=== PATIENT | female | born 1955 | race Caucasian/White ===

== ENCOUNTER 2016-06-13 18:08 | Emergency (ER) | payer MEDICARE ==
--- NOTE | 2016-06-13 19:25 | UC ---
Skin Complaint HPI - HPI Summary HPI Summary: 60 yo female with slightly itchy spreading rash on rash x 5 days crusted lesion below right nostril - History of Current Complaint Chief Complaint: UCRash Time Seen by Provider: 06/13/16 19:19 Stated Complaint: MOUTH AND CHIN SORE Hx Obtained From: Patient Onset/Duration: Gradual Onset, Lasting Days Timing: Constant Onset Severity: Mild Current Severity: Mild Pain Intensity: 0 Pain Scale Used: 0-10 Numeric Character: Swelling, Pruritus - slight, Painful Aggravating: Nothing Alleviating: Nothing Associated Signs & Symptoms: Positive: Rash. Negative: Nausea, Vomiting, Numbness, Thirst, Diaphoresis, Weakness, Pallor, Shivering, Difficulty Breathing , Fever, Chills, Cough, Wheezing, Chest Pain, Hoarseness, Throat Tightening, Abdominal Pain, Lightheadedness, Syncope, Drainage, Bruising, Tenderness, Red Streaks, Joint Swelling - Allergy/Home Medications Allergies/Adverse Reactions: Allergies Allergy/AdvReac Type Severity Reaction Status Date / Time Iohexol [From Omnipaque] Allergy Severe Vomiting Verified 06/13/16 18:55 Review of Systems Constitutional: Negative Skin: Rash Eyes: Negative ENT: Negative Respiratory: Negative Cardiovascular: Negative Gastrointestinal: Negative Genitourinary: Negative Motor: Negative Neurovascular: Negative Musculoskeletal: Negative Neurological: Negative Psychological: Negative All Other Systems Reviewed And Are Negative: Yes PMH/Surg Hx/FS Hx/Imm Hx Previously Healthy: Yes Endocrine History Of: Denies: Diabetes, Thyroid Disease Cardiovascular History Of: Denies: Cardiac Disorders, Hypertension Respiratory History Of: Denies: COPD, Asthma GI/ History Of: Denies: Ulcer Cancer History Of: Denies: Breast Cancer - Surgical History Surgical History: Yes Surgery Procedure, Year, and Place: STOMACH STAPLE. APPENDECTOMY. BILATERAL ELBOW REPAIR - Family History Known Family History: Positive: Hypertension Negative: Cardiac Disease, Diabetes - Social History Alcohol Use: None Substance Use Type: None Smoking Status (MU): Former Smoker Type: Cigarettes Physical Exam Triage Information Reviewed: Yes Appearance: Well-Appearing, No Pain Distress, Well-Nourished Vital Signs: Initial Vital Signs Temp 97.5 F 06/13/16 18:56 Pulse 67 06/13/16 18:56 Resp 20 06/13/16 18:56 BP 158/92 06/13/16 18:56 Pulse Ox 100 06/13/16 18:56 Vital Signs Reviewed: Yes Eyes: Positive: Conjunctiva Clear ENT: Positive: Hearing grossly normal. Negative: Nasal congestion, Nasal drainage, Trismus, Muffled/hoarse voice Neck: Positive: Supple, Nontender Respiratory: Positive: Lungs clear, Normal breath sounds, No respiratory distress Cardiovascular: Positive: RRR, Murmur:Sys:Grade _?_/. Negative: Tachycardia, Bradycardia Musculoskeletal: Positive: ROM Intact, No Edema Neurological: Positive: Alert Psychological Exam: Normal Skin: Positive: rashes - see image Course/Dx - Diagnoses Provider Diagnoses: impetigo. elevated BP Discharge - Discharge Plan Condition: Stable Disposition: HOME Prescriptions: Mupirocin 2% OINT* [Bactroban 2 % Oint*] 1 applic TOPICAL TID #1 tube Patient Education Materials: Impetigo (ED) Referrals: Raza Camacho MD [Primary Care Provider] - 2 Weeks Additional Instructions: your bp was high here 158/89 need rechecking Images Head: 1 - crusted lesion 2 - red/raised 3 - crusted
[2016-06-13 19:47] VITALS: BP 150/76
== END 2016-06-13 19:47 | disposition home or self-care (01) ==
LOC: UCEAST 18:08
DX: L01.00 Impetigo, unspecified (principal); R03.0 Elevated blood-pressure reading, without diagnosis of hypertension; Z91.041 Radiographic dye allergy status; Z87.891 Personal history of nicotine dependence
CPT/HCPCS: 99211; G0463

== ENCOUNTER 2017-06-08 06:35 | Day surgery (SDC) | payer MEDICARE ==
[2017-06-08] MEDS ORDERED: Buffered Lidocaine 0.9% SYRIN* 5 ML/SYR SYRINGE ONE (07:37)
[2017-06-08] MEDS ORDERED: Midazolam* 1 MG/ML 2 ML VIAL (2 MG) ONE ×2 (07:44→08:32)
[2017-06-08] MEDS ORDERED: fentaNYL* 50 MCG/ML 2 ML VIAL (100 MCG VIAL) ONE (07:44)
[2017-06-08] MEDS ORDERED: Tetracaine 0.5% OPTH.SOL 4 ML* 1 DROP BTL ONE (07:53)
[2017-06-08] MEDS ORDERED: Lidocaine 1% MPF* 2 ML VIAL ONE (07:53)
[2017-06-08] MEDS ORDERED: Phenylephrine 2.5% OPTH.SOL* 2 ML BTL ONE (07:53)
[2017-06-08] MEDS ORDERED: Cyclopentolate 1% OPTH.SOL* 2 ML BTL ONE (07:53)
[2017-06-08] MEDS ORDERED: Tropicamide 1% OPTH.SOL* BTL ONE (07:53)
[2017-06-08] MEDS ORDERED: Neomycin/Polymy/Dex OPHTH.OIN* 3.5 GM ONE (07:53)
[2017-06-08] MEDS ORDERED: Ketorolac 0.5% OPHTH (NF) 0.5 % 5 ML BTL ONE (07:53)
[2017-06-08] MEDS ORDERED: Phenylephr/Ketorolac 1%/0.3% OPH DROP BTL ONE (08:44)
[2017-06-08 09:03] VITALS: BP 127/70
--- NOTE | 2017-06-09 02:31 | OP ---
DATE OF OPERATION: 06/08/17 [facility] DATE OF : 53 SURGEON: Dr. Rodney Grove. SUPERVISOR PRODUCTION MANAGING: None. ANESTHESIA: Topical with intravenous sedation. PRE-OP DIAGNOSIS: Cataract, left eye. POST-OP DIAGNOSIS: Cataract, left eye. OPERATIVE PROCEDURE: Phacoemulsification and cataract extraction with posterior chamber intraocular lens implant, left eye. COMPLICATIONS: None. BLOOD LOSS: None. DESCRIPTION OF PROCEDURE: The patient was brought to the operating room and received a small amount of intravenous sedation. A drop of Tetracaine was placed in her left eye. She was prepped and draped in the usual sterile fashion for ophthalmic surgery and attention was directed to the left eye where a speculum was placed. A paracentesis was created at the 5 o'clock position and 0.1 cc of 1 percent preservative-free Lidocaine was injected into the anterior chamber followed by DisCoVisc. The eye was digitally stabilized while a 2.75 mm keratome was used to create a triplanar clear corneal incision at the 3 o'clock position. A continuous curvilinear capsulorrhexis was created with a cystotome and Utrata forceps. BSS on a cannula was used to hydrodissect the lens from the capsule. Phacoemulsification was performed in a divide-and- conquer technique to create four fragments which were removed. Residual cortical material was removed with irrigation and aspiration. DisCoVisc was used to inflate the capsular bag and an AUOOTO 23.5 diopter lens was folded and inserted into the capsular bag. DisCoVisc was removed using irrigation and aspiration. BSS on a cannula was used to hydrate the corneal stroma and seal the wound. At the end of the case the pupil was round and the lens was centered. The eye was of normal pressure and the wound was water tight. The speculum was removed and topical Maxitrol ointment was placed on the surface of the eye. The eye was closed, patched and shielded and the patient was sent to the recovery room in stable condition with post operative instructions and follow-up appointment given. [id number]/CPS #: [id number] MTDD
== END 2017-06-08 08:59 | disposition home or self-care (01) ==
LOC: OREAST 06:35
PROVIDERS: ATTEND Ophthalmology
DX: H25.12 Age-related nuclear cataract, left eye (principal); K64.5 Perianal venous thrombosis; R07.9 Chest pain, unspecified; I35.8 Other nonrheumatic aortic valve disorders; Z87.891 Personal history of nicotine dependence
CPT/HCPCS: A9270-GY; C9447; J2250; J3010; V2632

== ENCOUNTER 2017-11-08 16:50 | Emergency (ER) | payer MEDICARE ==
--- OUTSIDE RECORDS SUMMARY | 2017-11-08 16:56 | XMS REPORT ---
:1955 External Reference #:[id number] Author Organization [facility] Address [address] [place] [address] [place] [address] Phone [phone] Care Team Providers Name Role Phone Raza Camacho MD Primary Care Physician Unavailable Payers Type Date Identification Numbers Payment Provider Subscriber Commercial Effective: Policy Number: [id number] [employer] Medicare Keila Sexton 2017 PayID: [id number] [address] [place] [address] Medigap Part B Expires: 2017 Policy Number: [id number] Medicare Keila Sexton PayID: [id number] [address] [place] [address] Medigap Part B Effective: 1999 Policy Number: Medicare Keila Sexton [id number] Expires: 2012 PayID: [id number] [address] [place] [address] Commercial Expires: 2014 PayID: [id number] Bankruptcy Keila Sexton [address] [address] Problems Date Description Provider Status Onset: 12/23/2011 Heart murmur Raza Camacho M.D.,FACP Active Onset: 02/16/2017 Aortic valve disorder Ramez He M.D. Active Onset: 09/01/2017 Varicose veins of lower Raza Camacho M.D.,FACP Active extremity Note: bilat Onset: 10/13/2017 Localized, primary osteoarthritis Sheng Garrett M.D. Active Onset: 04/15/2011 Chest pain Ramez He M.D. Inactive Inactive: 09/01/2017 Onset: 12/30/2011 Thrombosed external Lupe Issac, N.P. Inactive hemorrhoids Inactive: 09/01/2017 Family History Date Family Member(s) Problem(s) Comments General Hypertension First Son Diabetes, Insulin Dependent First Son due to Sepsis () First Son spina bifida Social History Type Date Description Comments Marital Status Lives With Spouse Occupation Currently Working cares for grandchildren daily Cigarette Use Former Cigarette Smoker ETOH Use 09/01/2017 Rarely consumes alcohol Recreational Drug Use Denies Drug Use Smoking Patient is a former smoker Exercise Type/Frequency Exercises regularly General Hx Text son , daughter Allergies, Adverse Reactions, Alerts Date Description Reaction Status Severity Comments 03/26/2009 NKDA active Medications Medication Date Status Form Strength Qnty SIG Indications Ordering Provider Diclofenac Sodium 10/13 Active Gel 1% 300gm apply 4 M17.11 gr to Gerry, right M.D. knee twice a day as needed Naproxen 10/20 Active Tablets 500mg 60tab 1 by M17.0 s mouth DShay Camacho, twice a M.D.,FACP day as needed Omeprazole 05/[address] 20mg 60cap take 1 535.00 s capsule DShay Camacho, by mouth M.D.,FACP twice a day Metamucil 01/05 Hx Powder 28.3% 1Can 2 tbs by 575.11 mouth D. Janice, - daily M.D.,FACP 10/20 Rectacort-HC 12/29 Hx Suppository 25mg 60uni insert 455.4 ts rectally [place] - twice atson, 01/05 daily N.P. /2011 Hemorrhoidal-HC 12/29 Hx Cream 2.5% 60gra apply 455.4 ms after [place] - each atson, 01/05 bowel N.P. /2011 movement. Prednisone 12/27 Hx Tablets 50mg 3tabs 1 po 13 hours, 7 D. Martin, - hours and Julissa,[facility] 01/05 1 /[address] appt. Diphenhydramine 12/27 Hx Tablets 25mg 2tabs 2 tablets po 1 hour Cande Camacho, - before CT Julissa,[facility] 01/05 scan None 00 Hx Unknown /0000 - 05/08 Ondansetron HCL Hx Tablets 4mg 30tab 1 q6-8h Raza / s prn Cande Camacho, - Julissa,[facility] 10/20 Famotidine Hx Tablets 20mg 60tab 1 po qhs 535.00 Unknown /0000 s - 05/08 Simethicone Hx Chewtabs 80mg 90uni 1 po tid Unknown / ts - 05/21 Famotidine Hx Tablets 20mg Neirynck, /0000 Aundrea, [employer] - 05/21 Azithromycin Hx Tablets 250mg Neirynck, /0000 Aundrea, [employer] - 05/21 Medications Administered in Office Medication Date Status Form Strength Qnty SIG Indications Ordering Provider Depomedrol Administered Injection Miltonanovic, 80MG 010 Julissa Beverly Depomedrol Administered Injection Stevanovic, 40MG 010 Julissa Beverly Immunizations CPT Code Status Date Vaccine Lot # [id number] Given 01/06/2012 Fluvirin Im 3Yrs And Older [id number] Vital Signs Date Vital Result Comment 10/13/2017 Height 61.25 inches 5'1.25" Weight 209.00 lb Heart Rate 68 /min Respiratory Rate 14 /min Body Temperature 97.0 F Pain Level 5 BMI (Body Mass Index) 39.2 kg/m2 09/01/2017 Height 61.25 inches 5'1.25" Weight 203.00 lb Heart Rate 72 /min BP Systolic Sitting 130 mmHg BP Diastolic Sitting 76 mmHg Body Temperature 96.9 F O2 % BldC Oximetry 97 % BMI (Body Mass Index) 38.0 kg/m2 06/04/2017 Height 61.25 inches 5'1.25" Weight 203.50 lb Heart Rate 66 /min BP Systolic Sitting 126 mmHg BP Diastolic Sitting 76 mmHg Body Temperature 96.9 F O2 % BldC Oximetry 98 % BMI (Body Mass Index) 38.1 kg/m2 05/06/2017 Weight 203.12 lb Heart Rate 68 /min BP Systolic Sitting 128 mmHg BP Diastolic Sitting 78 mmHg Body Temperature 96.7 F O2 % BldC Oximetry 97 % 02/16/2017 Weight 214.00 lb Heart Rate 73 /min BP Systolic Sitting 138 mmHg BP Diastolic Sitting 78 mmHg O2 % BldC Oximetry 98 % 10/20/2012 Height 61 inches 5'1" Weight 214.00 lb Heart Rate 84 /min BP Systolic Sitting 140 mmHg BP Diastolic Sitting 82 mmHg BMI (Body Mass Index) 40.4 kg/m2 01/06/2012 Height 61.25 inches 5'1.25" Weight 205.00 lb Heart Rate 76 /min BP Systolic Sitting 112 mmHg BP Diastolic Sitting 70 mmHg BMI (Body Mass Index) 38.4 kg/m2 12/30/2011 Height 61.25 inches 5'1.25" Weight 208.00 lb Heart Rate 80 /min BP Systolic Sitting 138 mmHg BP Diastolic Sitting 80 mmHg BMI (Body Mass Index) 39.0 kg/m2 12/23/2011 Height 61.5 inches 5'1.50" Weight 208.00 lb Heart Rate 80 /min BP Systolic Sitting 110 mmHg BP Diastolic Sitting 72 mmHg Body Temperature 98.1 F BMI (Body Mass Index) 38.7 kg/m2 05/22/2011 Height 61.50 inches 5'1.50" Weight 214.00 lb Heart Rate 77 /min BP Systolic Sitting 100 mmHg BP Diastolic Sitting 76 mmHg BMI (Body Mass Index) 39.8 kg/m2 05/08/2011 Height 62.50 inches 5'2.50" Weight 216.00 lb Heart Rate 82 /min BP Systolic Sitting 126 mmHg BP Diastolic Sitting 76 mmHg BMI (Body Mass Index) 38.9 kg/m2 04/15/2011 Height 62.50 inches 5'2.50" Weight 216.00 lb Heart Rate 72 /min BP Systolic Sitting 120 mmHg l BP Diastolic Sitting 72 mmHg l Body Temperature 96.7 F BMI (Body Mass Index) 38.9 kg/m2 04/26/2009 Weight 207.00 lb Heart Rate 76 /min BP Systolic Sitting 116 mmHg BP Diastolic Sitting 78 mmHg 03/26/2009 Weight 203.00 lb Heart Rate 80 /min BP Systolic Sitting 102 mmHg BP Diastolic Sitting 78 mmHg Respiratory Rate 12 /min Results Test Date Test Result H/L Range Note Laboratory test finding 09/06/2017 [employer] Medicare neg Lipid Profile (Trig/Chol/HDL) 09/02/2017 Triglycerides 65 mg/dL 1 Cholesterol 205 mg/dL 2 HDL Cholesterol 59.2 mg/dL 3 LDL Cholesterol 133 mg/dL 4 Basic Metabolic Panel 09/02/2017 Sodium 140 mmol/L 139-145 Potassium 4.0 mmol/L 3.5-5.0 Chloride 105 mmol/L 101-111 Co2 Carbon Dioxide 27 mmol/L 22-32 Anion Gap 8 mmol/L 2-11 Glucose 98 mg/dL 70-100 Blood Urea Nitrogen 20 mg/dL 6-24 Creatinine 0.72 mg/dL 0.51-0.95 BUN/Creatinine Ratio 27.8 High 8-20 Calcium 9.0 mg/dL 8.6-10.3 Egfr Non- 82.1 >60 Egfr 105.6 >60 5 Laboratory test finding 09/02/2017 Rheumatoid Factor < 10 IU/mL <15 6 Hepatitis C Antibody Nonreactive Nonreactive 7 CBC Auto Diff 09/02/2017 White Blood Count 6.0 10^3/uL 3.5-10.8 Red Blood Count 4.43 10^6/uL 4.00-5.40 Hemoglobin 13.3 g/dL 12.0-16.0 Hematocrit 39 % 35-47 Mean Corpuscular Volume 89 fL 80-97 Mean Corpuscular Hemoglobin 30 pg 27-31 Mean Corpuscular HGB Conc 34 g/dL 31-36 Red Cell Distribution Width 13 % 10.5-15 Platelet Count 303 10^3/uL 150-450 Mean Platelet Volume 8.3 um3 7.4-10.4 Abs Neutrophils 3.4 10^3/uL 1.5-7.7 Abs Lymphocytes 1.6 10^3/uL 1.0-4.8 Abs Monocytes 0.5 10^3/uL 0-0.8 Abs Eosinophils 0.4 10^3/uL 0-0.6 Abs Basophils 0.1 10^3/uL 0-0.2 Abs Nucleated RBC 0 10^3/uL Granulocyte % 57.0 % 38-83 Lymphocyte % 27.2 % 25-47 Monocyte % 8.0 % High 0-7 Eosinophil % 6.0 % 0-6 Basophil % 1.8 % 0-2 Nucleated Red Blood Cells % 0 Laboratory test finding 09/02/2017 Uric Acid 2.7 mg/dL 2.3-6.6 8 Laboratory test finding 12/23/2011 Lipase 21 U/L Low 22-51 Comp Metabolic Panel 12/23/2011 Sodium 140 mmol/L 133-145 Potassium 3.9 mmol/L 3.5-5.0 Chloride 102 mmol/L 101-111 Co2 Carbon Dioxide 30.0 mmol/L 22-32 Anion Gap 8.0 mmol/L 2-11 Glucose 80 mg/dL 70-100 Blood Urea Nitrogen 7 mg/dL 6-24 Creatinine 0.70 mg/dL 0.50-1.40 BUN/Creatinine Ratio 10.0 8-20 Calcium 8.8 mg/dL 8.1-9.9 Total Protein 6.5 GM/DL 6.2-8.1 Albumin 3.9 GM/DL 3.6-5.4 Globulin 2.6 GM/DL 2-4 Albumin/Globulin Ratio 1.5 1-3 Total Bilirubin 0.4 mg/dL 0.1-1.0 9 Alkaline Phosphatase 82 U/L 30-110 Alt 27 U/L 14-54 Ast 27 U/L 12-42 Egfr Non- 86.2 >60 Egfr 110.9 >60 10 CBC Auto Diff 12/23/2011 White Blood Count 9.4 10^3/uL 4.8-10.8 Red Blood Count 4.23 10^6/uL 4.0-5.4 Hemoglobin 13.2 g/dL 12.0-16.0 Hematocrit 39.6 % 35-47 Mean Corpuscular Volume 94 fL 80-97 Mean Corpuscular Hemoglobin 31 pg 27-31 Mean Corpuscular HGB Conc 33 g/dL 31-36 Red Cell Distribution Width 14 % 10.5-15 Platelet Count 332 10^3/uL 150-450 Mean Platelet Volume 10 um3 7.4-10.4 Abs Neutrophils 6.1 10^3/uL 1.5-7.7 Abs Lymphocytes 2.7 10^3/uL 1.0-4.8 Abs Monocytes 0.5 10^3/uL 0-0.8 Abs Eosinophils 0.1 10^3/uL 0-0.6 Abs Basophils 0.1 10^3/uL 0-0.2 Abs Nucleated RBC 0 10^3/uL Granulocyte % 64.2 % 38-83 Lymphocyte % 28.6 % 25-47 Monocyte % 5.2 % 1-9 Eosinophil % 1.4 % 0-6 Basophil % 0.6 % 0-2 Nucleated Red Blood Cells % 0 Laboratory test finding 05/06/2011 Ictotest NEGATIVE 11 Comp Metabolic Panel 05/06/2011 Sodium 135 mmol/L 135-145 Potassium 4.4 mmol/L 3.5-5.0 Chloride 100 mmol/L Low 101-111 Co2 (Carbon Dioxide) 26.0 mmol/L 22-32 Anion Gap 9.0 mmol/L 2-11 12 Glucose 127 mg/dL High 70-100 BUN 17 mg/dL 6-24 Creatinine 0.8 mg/dL 0.50-1.40 One Over Creatinine 1.25 BUN/Creatinine Ratio 21.3 High 8-20 Calcium 9.2 mg/dL 8.1-9.9 Total Protein 8.8 GM/DL High 6.2-8.1 Albumin 4.4 GM/DL 3.6-5.4 Globulin 4.4 GM/DL High 2-4 Albumin/Globulin Ratio 1.0 1-3 Bilirubin Total 0.7 mg/dL 0.4-1.5 13 Alkaline Phosphatase 94 U/L 30-110 Alt (SGPT) 19 U/L 14-54 Ast (Sgot) 19 U/L 12-42 eGFR Non- 74.2 > 60 eGFR 95.4 > 60 14 Laboratory test finding 05/06/2011 Lipase 28 U/L 22-51 Troponin-I 0.01 NG/ML 0-0.06 15 Urinalysis 05/06/2011 Ua Color YELLOW Yellow Appearance-Urine CLEAR Clear Specific Hollis-Ur 1.029 1.010-1.030 Esterase-Urine NEGATIVE Negative Nitrite NEGATIVE Negative Nbcuvjmiwcic-Op-QAG NEGATIVE Negative Protein-Urine NEGATIVE Negative PH-Urine 5.0 5-9 Blood-Urine NEGATIVE Negative Ketones-Urine 1+ Negative Bilirubin-Ur SEE ICTOTEST Negative Glucose-Urine NEGATIVE Negative Manual Differential 05/06/2011 Polysegmented Neutrophil 88 % High 38-83 Lymphocyte 7 % Low 25-47 Monocyte 2 % 0-13 Eosinophil 3 % 0-6 Absolute Neutrophil Count 11.1 RBC Morphology NORMAL CBC Auto Diff 05/06/2011 White Blood Count 12.7 CUMM High 4.8-10.8 Red Cell Count 4.87 CUMM 4.2-5.4 Hemoglobin 15.2 g/dL 12.0-16.0 Hematocrit 44 % 35-47 Mean Corpuscular Volume 90 um3 79-97 Mean Corpuscular Hemoglob 31 pg 27-31 Mean Corpuscular HGB Cone 35 g/dL 32-36 Redcell Distribution WDTH 14 % 10.5-15 Platelet Count 331 CUMM 150-450 Mean Platelet Volume 8.5 um3 7.4-10.4 16 Laboratory test finding 04/15/2011 Troponin-I 0 NG/ML 0-0.06 17 CBC Auto Diff 04/15/2011 White Blood Count 8.3 CUMM 4.8-10.8 Red Cell Count 4.27 CUMM 4.2-5.4 Hemoglobin 13.3 g/dL 12.0-16.0 Hematocrit 39 % 35-47 Mean Corpuscular Volume 90 um3 79-97 Mean Corpuscular Hemoglob 31 pg 27-31 Mean Corpuscular HGB Cone 35 g/dL 32-36 Redcell Distribution WDTH 13 % 10.5-15 Platelet Count 319 CUMM 150-450 Mean Platelet Volume 8.2 um3 7.4-10.4 Gran % 51.5 % 38-83 Lymph % 37.6 % 25-47 Mononuclear % 7.9 % 1-9 Eosinophil % 2.4 % 0-6 Basophil % 0.6 % 0-2 Abs Lymphs 3.1 1.0-4.8 Abs Mononuclear 0.7 0-0.8 Absolute Neutrophil Count 4.3 1.5-7.7 Abs Eosinophils 0.2 0-0.6 Abs Basophils 0 0-0.2 Comp Metabolic Panel 04/15/2011 Sodium 140 mmol/L 135-145 Potassium 4.0 mmol/L 3.5-5.0 Chloride 104 mmol/L 101-111 Co2 (Carbon Dioxide) 28.0 mmol/L 22-32 Anion Gap 8.0 mmol/L 2-11 18 Glucose 93 mg/dL 70-100 BUN 16 mg/dL 6-24 Creatinine 0.7 mg/dL 0.50-1.40 One Over Creatinine 1.42 BUN/Creatinine Ratio 22.9 High 8-20 Calcium 9.0 mg/dL 8.1-9.9 Total Protein 7.6 GM/DL 6.2-8.1 Albumin 4.0 GM/DL 3.6-5.4 Globulin 3.6 GM/DL 2-4 Albumin/Globulin Ratio 1.1 1-3 Bilirubin Total 0.7 mg/dL 0.4-1.5 19 Alkaline Phosphatase 82 U/L 30-110 Alt (SGPT) 17 U/L 14-54 Ast (Sgot) 18 U/L 12-42 eGFR Non- 86.6 > 60 eGFR 111.3 > 60 20 Liver Function Panel 04/15/2011 Bilirubin Direct 0.1 mg/dL 0.1-0.5 Indirect Bilirubin 0.6 mg/dL 0.3-1.0 21 Laboratory test finding 04/15/2011 Magnesium 2.2 mg/dL 1.7-2.6 Lipase 23 U/L 22-51 CPK (Creatine Kinase) 57 U/L 0-170 CKMB 04/15/2011 CKMB In NG/ML 1.3 NG/ML 0.3-4.0 % CKMB 2 %MB 0-9 22 Laboratory test finding 04/15/2011 Troponin-I 0 NG/ML 0-0.06 23 CBC With Electronic Diff 03/30/2009 White Blood Count 6.9 CUMM 4.8-10.8 24 Red Cell Count 4.51 CUMM 4.2-5.4 24 Hemoglobin 13.9 g/dL 12.0-16.0 24 Hematocrit 41 % 35-47 24 Mean Corpuscular Volume 91 um3 79-97 24 Mean Corpuscular Hemoglob 31 pg 27-31 24 Mean Corpuscular HGB Cone 34 g/dL 32-36 24 Redcell Distribution WDTH 13 % 10.5-15 24 Platelet Count 323 CUMM 150-450 24 Mean Platelet Volume 7.8 um3 7.4-10.4 24 Gran % 50.6 % 38-83 24 Lymph % 39.8 % 25-47 24 Mononuclear % 6.1 % 1-9 24 Eosinophil % 3.1 % 0-6 24 Basophil % 0.4 % 0-2 24 Abs Lymphs 2.7 1.0-4.8 24 Abs Mononuclear 0.4 0-0.8 24 Absolute Neutrophil Count 3.5 1.5-7.7 24 Abs Eosinophils 0.2 0-0.6 24 Abs Basophils 0 0-0.2 24 Urinalysis 03/30/2009 Ua Color YELLOW Yellow 24 Appearance-Urine CLEAR Clear 24 Specific Hollis-Ur 1.021 1.010-1.030 24 Esterase-Urine NEGATIVE Negative 24 Nitrite NEGATIVE Negative 24 Ofbiifjwpqxb-Qz-ELD NEGATIVE Negative 24 Protein-Urine NEGATIVE Negative 24 PH-Urine 6.5 5-9 24 Blood-Urine NEGATIVE Negative 24 Ketones-Urine NEGATIVE Negative 24 Bilirubin-Ur SEE ICTOTEST Negative 24 Glucose-Urine NEGATIVE Negative 24 Laboratory test finding 03/30/2009 Ictotest-Urine NEGATIVE 24, 25 Comp Metabolic Panel 03/30/2009 Sodium 138 mmol/L 135-145 24 Potassium 4.7 mmol/L 3.5-5.0 24 Chloride 103 mmol/L 101-111 24 Co2 (Carbon Dioxide) 28.0 mmol/L 22-32 24 Anion Gap 7.0 mmol/L 2-11 24, 26 Glucose 98 mg/dL 70-100 24, 27 BUN 16 mg/dL 6-24 24 Creatinine 0.60 mg/dL 0.50-1.40 24 One Over Creatinine 1.60 24 BUN/Creatinine Ratio 26.7 High 8-20 24 Calcium 9.1 mg/dL 8.1-9.9 24, 28 Total Protein 6.4 GM/DL 6.2-8.1 24 Albumin 3.9 GM/DL 3.6-5.4 24 Globulin 2.5 GM/DL 2-4 24 Albumin/Globulin Ratio 1.6 1-3 24 Bilirubin Total 0.6 mg/dL 0.4-1.5 24, 29 Alkaline Phosphatase 79 U/L 30-110 24 Alt (SGPT) 13 U/L Low 14-54 24 Ast (Sgot) 15 U/L 12-42 24 eGFR Non- 110.7 > 60 24 eGFR 134.0 > 60 24, 30 Lipid Profile (Trig/Chol/HDL) 03/30/2009 Triglyceride 72 mg/dL 40-200 24 Cholesterol 247 mg/dL High Less Than 200 24, 31 High Density Lipoprotein 73 mg/dL High 40-60 24, 32 Cholesterol/HDL Ratio 3.38 AVERAGE 1-4.44 24 Low Density Lipoprotein 160 mg/dL High Less Than 100 24, 33 1 Desirable: <150 Borderline High: 150-199 High: 200-499 Very High: >500 2 Desirable: <200 Borderline High: 200-239 High: >239 3 Low: <40 Desirable: 40-60 High: >60 4 Desirable: <100 Near Optimal: 100-129 Borderline High: 130-159 High: 160-189 Very High: >189 5 Because ethnic data is not always readily available, this report includes an eGFR for both -Americans and non- Americans. The National Kidney Disease Education Program (NKDEP) does not endorse the use of the MDRD equation for patients that are not between the ages of 18 and 70, are , have extremes of body size, muscle mass, or nutritional status, or are non- or non-. According to the National Kidney Foundation, irrespective of diagnosis, the stage of the disease is based on the level of kidney function: Stage Description GFR(mL/min/1.73 m(2)) 1 Kidney damage with normal or decreased GFR 90 2 Kidney damage with mild decrease in GFR 60-89 3 Moderate decrease in GFR 30-59 4 Severe decrease in GFR 15-29 5 Kidney failure <15 (or dialysis) 6 FASTING 10 HOUR 7 FASTING 10 HOUR 8 FASTING 10 HOUR 9 A metabolite of Naproxen, O-desmethylnaproxen, has been shown to interfere with the Jendrass[place] method for measuring total bilirubin. Samples from patients who have taken Naproxen have shown spurious elevation in total bilirubin levels. 10 Because ethnic data is not always readily available, this report includes an eGFR for both -Americans and non- Americans. The National Kidney Disease Education Program (NKDEP) does not endorse the use of the MDRD equation for patients that are not between the ages of 18 and 70, are , have extremes of body size, muscle mass, or nutritional status, or are non- or non-. According to the National Kidney Foundation, irrespective of diagnosis, the stage of the disease is based on the level of kidney function: Stage Description GFR(mL/min/1.73 m(2)) 1 Kidney damage with normal or decreased GFR 90 2 Kidney damage with mild decrease in GFR 60-89 3 Moderate decrease in GFR 30-59 4 Severe decrease in GFR 15-29 5 Kidney failure <15 (or dialysis) 11 ICTOTEST IS A QUALITATIVE CONFIRMATORY TEST FOR BILIRUBIN. 12 Anion gap measurement may be of limited value in the presence of any alkalosis, especially in a combined acid base disorder. . 13 A metabolite of Naproxen, O-desmethylnaproxen, has been shown to interfere with the Jendrassik-[place] method for measuring total bilirubin. Samples from patients who have taken Naproxen have shown spurious elevation in total bilirubin levels. 14 Because ethnic data is not always readily available, this report includes an eGFR for both -Americans and non- Americans. The National Kidney Disease Education Program (NKDEP) does not endorse the use of the MDRD equation for patients that are not between the ages of 18 and 70, are , have extremes of body size, muscle mass, or nutritional status, or are non- or non-. According to the National Kidney Foundation, irrespective of diagnosis, the stage of the disease is based on the level of kidney function: Stage Description GFR(mL/min/1.73 m(2)) 1 Kidney damage with normal or decreased GFR 90 2 Kidney damage with mild decrease in GFR 60-89 3 Moderate decrease in GFR 30-59 4 Severe decrease in GFR 15-29 5 Kidney failure <15 (or dialysis) 15 New Reference Range and Interpretation effective 12/23/2001 TnI (ng/ml) INTERPRETATION Less Than 0.06 ng/mL NOT SUPPORTIVE OF DIAGNOSIS OF MD 0.06 - 0.50 ng/ml INDETERMINATE: SUGGEST SERIAL STUDIES IF CLINICALLY INDICATED. Greater than 0.5 ng/mL CONSISTENT WITH DIAGNOSIS OF MD . 16 Neutrophilia % Lymphopenia % 17 New Reference Range and Interpretation effective 12/23/2001 TnI (ng/ml) INTERPRETATION Less Than 0.06 ng/mL NOT SUPPORTIVE OF DIAGNOSIS OF MD 0.06 - 0.50 ng/ml INDETERMINATE: SUGGEST SERIAL STUDIES IF CLINICALLY INDICATED. Greater than 0.5 ng/mL CONSISTENT WITH DIAGNOSIS OF MD . 18 Anion gap measurement may be of limited value in the presence of any alkalosis, especially in a combined acid base disorder. . 19 A metabolite of Naproxen, O-desmethylnaproxen, has been shown to interfere with the Jendrassik-[place]as[place] method for measuring total bilirubin. Samples from patients who have taken Naproxen have shown spurious elevation in total bilirubin levels. 20 Because ethnic data is not always readily available, this report includes an eGFR for both -Americans and non- Americans. The National Kidney Disease Education Program (NKDEP) does not endorse the use of the MDRD equation for patients that are not between the ages of 18 and 70, are , have extremes of body size, muscle mass, or nutritional status, or are non- or non-. According to the National Kidney Foundation, irrespective of diagnosis, the stage of the disease is based on the level of kidney function: Stage Description GFR(mL/min/1.73 m(2)) 1 Kidney damage with normal or decreased GFR 90 2 Kidney damage with mild decrease in GFR 60-89 3 Moderate decrease in GFR 30-59 4 Severe decrease in GFR 15-29 5 Kidney failure <15 (or dialysis) 21 Please note updated reference range, effective 10/10/09 22 INTERPRETATION %CK-MB < 5% NOT SUPPORTIVE OF DIAGNOSIS OF MD 5 - <10% INDETERMINATE; SUGGEST SERIAL STUDIES IF CLINICALLY INDICATED 10% OR > CONSISTENT WITH DIAGNOSIS OF MD . 23 New Reference Range and Interpretation effective 12/23/2001 TnI (ng/ml) INTERPRETATION Less Than 0.06 ng/mL NOT SUPPORTIVE OF DIAGNOSIS OF MD 0.06 - 0.50 ng/ml INDETERMINATE: SUGGEST SERIAL STUDIES IF CLINICALLY INDICATED. Greater than 0.5 ng/mL CONSISTENT WITH DIAGNOSIS OF MD . 24 FASTING 25 ICTOTEST IS A QUALITATIVE CONFIRMATORY TEST FOR BILIRUBIN. 26 Anion gap measurement may be of limited value in the presence of any alkalosis, especially in a combined acid base disorder. . 27 Note change in reference range as of 11/10/07. The change was based on recommendations from the [place] [employer]. 28 Please note change in reference range effective 07 . 29 A metabolite of Naproxen, O-desmethylnaproxen, has been shown to interfere with the Jendrassik-[place]as[place] method for measuring total bilirubin. Samples from patients who have taken Naproxen have shown spurious elevation in total bilirubin levels. 30 Because ethnic data is not always readily available, this report includes an eGFR for both -Americans and non- Americans. The National Kidney Disease Education Program (NKDEP) does not endorse the use of the MDRD equation for patients that are not between the ages of 18 and 70, are , have extremes of body size, muscle mass, or nutritional status, or are non- or non-. According to the National Kidney Foundation, irrespective of diagnosis, the stage of the disease is based on the level of kidney function: Stage Description GFR(mL/min/1.73 m(2)) 1 Kidney damage with normal or decreased GFR 90 2 Kidney damage with mild decrease in GFR 60-89 3 Moderate decrease in GFR 30-59 4 Severe decrease in GFR 15-29 5 Kidney failure <15 (or dialysis) 31 CHOLESTEROL INTERPRETATION: Desirable: Less than 200 MG/DL Borderline-High Risk: 200-239 MG/DL High-Risk: 240 MG/DL and over 32 HDL INTERPRETATION: Undesirable: High Risk: Less than 40 MG/DL Desirable: Low Risk: Greater than 60 MG/DL 33 LDL INTERPRETATION: Low Risk Optimal Level: LDL Less than 100 MG/DL Near or Above Optimal: LDL 100-129 MG/DL Borderline High Risk: LDL 130-159 MG/DL High Risk: LDL 160-189 MG/DL Very High Risk: LDL Greater than 189 MG/DL Procedures Date CPT Code Description Status 03/01/2017 19353 ECHO Transthorasic Realtime 2D W Doppler & Color Flow Completed Hosp 02/16/2017 92051 EKG Tracing & Interpretation Completed 01/02/2015 Mammogram Completed 04/15/2011 40770 EKG Tracing & Interpretation Completed 04/26/2009 43411 Admin Of Inj Completed 04/26/2009 65497 Inject/Drain Joint/Bursa Major W/O US Completed 04/04/2009 Mammogram Completed 03/26/2009 62526 EKG Tracing & Interpretation Completed 02/26/2009 03928 ECHO Transthoracic, Real-Time 2D With Doppler And Color Completed Flow Encounters Type Date Location Provider CPT E/M Dx Office Visit 10/13/2017 [facility], [address] M17.11 10:30a Nino Costa Office Visit 09/01/2017 [facility] Raza Camacho, 59323 M17.11 11:20a - [place] Costa,FACP M25.562 I83.12 Z12.31 Z12.11 Office Visit 06/04/2017 10:20a [facility] Ramez He, 09257 Z01.818 Medicine - [place] Costa H26.9 K21.9 Office Visit 05/06/2017 9:20a [facility] Concepcion Harper, [employer] [address]348 G56.01 Medicine - [address] R60.0 I83.008 I83.93 Office Visit 02/16/2017 9:40a [facility] Ramez He, 11080 Z01.818 Medicine - [address] M.DShay H26.9 I35.9 Office Visit 11/25/2012 9:00a [facility], 934[address] 715.16 Nino Costa Office Visit 10/20/2012 4:00p [facility] Raza Camacho, 93862 715.16 - Roselia Costa,FACP 453.40 Office Visit 01/06/2012 11:30a [facility] Raza Camacho, 84367 575.11 - Roselia Costa,FACP 455.3 V76.51 V76.19 V04.81 Office Visit 12/30/2011 4:00p [facility] Lupe Davenport, 84939 455.4 Medicine - N.PShay Veloz Office Visit 12/23/2011 11:50a [facility] Raza Camacho, 33039 789.06 Medicine Jeanna Costa,FACP [place] 785.2 Office Visit 05/22/2011 9:40a [facility] Raza Camacho, 93337 535.40 - Roselia Costa,FACP 575.11 Office Visit 05/08/2011 4:20p [facility] Raza Camacho, 265[address] 535.00 - Roselia Costa,FACP 575.11 424.1 Office Visit 04/15/2011 4:40p [facility] [place], [address] 786.50 Medicine - Roselia Costa V72.60 Office Visit 04/26/2009 10:00a DO Not Use [facility] [place], [address] 715.26 Shannon Costa 785.2 V13.22 278.00 Office Visit 03/26/2009 10:00a DO Not Use [facility] Kevin Chavez M.D. 108[address] 715.26 [facility] 785.2 V13.22 278.00 Plan of Care Future Appointment(s):12/08/2017 9:45 am - Sheng Garrett M.D. at [facility]01/21/2018 10:20 am - Raza Camacho M.D.,FACP at [facility] - [address]10/13/2017 - Sheng Garrett M.D.M17.11 Unilateral primary osteoarthritis, right kneeNew Medication:Diclofenac Sodium 1 %New Therapy:Physical TherapyFollow up:8 weeks
[2017-11-08 16:58] VITALS: BP 148/75
--- NOTE | 2017-11-08 17:11 | UC ---
Complaint Female HPI - HPI Summary HPI Summary: The patient is a 62 y/o F presenting to [facility] c/o dysuria and vaginal burning with increased in frequency and urgency of urination for the last few days. She had just finished a Bactrim treatment after presenting to [facility] for a UTI with symptoms that have not been alleviated. The pain is rated 8/10 in severity. She denies fever, chills, nausea, vomiting, and back pain. She has hx of hypercholesterolemia and GERD. - History Of Current Complaint Chief Complaint: UCGU Stated Complaint: BURNING URINATION Time Seen by Provider: 11/08/17 16:53 Hx Obtained From: Patient Onset/Duration: Sudden Onset, Lasting Days, Still Present Timing: Lasting Days Severity Initially: Moderate Severity Currently: Moderate Pain Intensity: 8 Pain Scale Used: 0-10 Numeric Character: Burning Aggravating Factor(s): Nothing Alleviating Factor(s): Nothing - prescribed Bactrim did not alleviate symptoms Associated Signs And Symptoms: Negative: Fever, Back Pain, Nausea, Vomiting(# Of Episodes =) - Allergies/Home Medications Allergies/Adverse Reactions: Allergies Allergy/AdvReac Type Severity Reaction Status Date / Time iohexol [From Omnipaque] Allergy Vomiting Verified 11/08/17 16:58 PMH/Surg Hx/FS Hx/Imm Hx Other Endocrine History: NEGATIVE: diabetes Other Cardiovascular History: Hypercholesterolemia GI/ History: Gastroesophageal Reflux - Surgical History Surgical History: Yes Surgery Procedure, Year, and Place: STOMACH STAPLE. APPENDECTOMY. BILATERAL ELBOW REPAIR. RIGHT EYE CATARACT REMOVAL - Family History Known Family History: Positive: Hypertension Negative: Cardiac Disease, Diabetes - Social History Alcohol Use: Occasionally Substance Use Type: None Smoking Status (MU): Former Smoker Type: Cigarettes Amount Used/How Often: 1 PPD DECREASED TO 1 CIGARETTE PER DAY X 40 YEARS Have You Smoked in the Last Year: No When Did the Patient Quit Smoking/Using Tobacco: 4 YEARS AGO Review of Systems Constitutional: Other - NEGATIVE: fevers, chills Gastrointestinal: Other - NEGATIVE: nausea, vomiting Genitourinary: Dysuria, Frequency - increased, Urgency - increased, Vaginal/ Penile Burning Musculoskeletal: Other: - NEGATIVE: back pain All Other Systems Reviewed And Are Negative: Yes Physical Exam - Summary Physical Exam Summary: VITAL SIGNS: Reviewed. GENERAL: Patient is a well-developed and nourished female who is lying comfortable in the stretcher. Patient is not in any acute respiratory distress. HEAD AND FACE: Normocephalic EYES: PERRLA, EOMI x 2. EARS: Hearing grossly intact. MOUTH: Oropharynx within normal limits. NECK: Supple, trachea is midline, no adenopathy, no JVD, no carotid bruit. CHEST: Symmetric, no tenderness at palpation LUNGS: Clear to auscultation bilaterally. No wheezing or crackles. CVS: Regular rate and rhythm, S1 and S2 present, no murmurs or gallops appreciated. ABDOMEN: Soft, non-tender. Bowel sounds are normal. No abdominal abnormal pulsations. EXTREMITIES: Full ROM in all major joints, no edema, no cyanosis or clubbing. NEURO: Alert and oriented x 3. No acute neurological deficits. Speech is normal and follows commands. SKIN: Dry and warm Triage Information Reviewed: Yes Vital Signs: Initial Vital Signs Temp 97.9 F 11/08/17 16:55 Pulse 81 11/08/17 16:55 Resp 18 11/08/17 16:55 BP 148/75 11/08/17 16:55 Pulse Ox 98 11/08/17 16:55 Vital Signs Reviewed: Yes Complaint Female Dx - Course Course Of Treatment: The patient was found to have increased BP in UC. The patient will follow up with PCP for better control of BP. . This patient is a 62-year-old female with chief complaint of dysuria, urinary frequency and urgency. Urinalysis with positive leukocytes. Therefore the patient will be placed on ciprofloxacin and we will send urine for cultures. At this time the patient is hemodynamically stable alert oriented 3. She was recommended to go to the ER or return to the urgent care if the symptoms worsen. She understands and agrees and she has no further questions. - Differential Dx/Diagnosis Provider Diagnoses: Urinary tract infection Discharge - Sign-Out/Discharge Documenting (check all that apply): Patient Departure - Patient will be discharged home. All imaging exams completed and their final reports reviewed: Yes - Discharge Plan Condition: Stable Disposition: HOME Prescriptions: Ciprofloxacin TAB* [Cipro 250 MG Tab*] 250 mg PO BID #6 tab Patient Education Materials: Urinary Tract Infection in Women (DC) Referrals: Raza Camacho MD [Primary Care Provider] - 3 Days Additional Instructions: FOLLOW UP WITH YOUR PRIMARY CARE PROVIDER WITHIN ONE WEEK FOR HIGH BLOOD PRESSURE NOTED TODAY. RETURN TO URGENT CARE OR THE EMERGENCY DEPARTMENT FOR ANY WORSENING OR NEW SYMPTOMS. Take medications as instructed and adhere to plan Take Acetaminophen or ibuprofen for pain or fever Increase your fluid intake Return to the or go to the emergency department if symptoms worsen Follow-up with primary care physician in next 2-3 days - Billing Disposition and Condition Condition: STABLE Disposition: Home - Attestation Statements Document Initiated by Cherelle: Yes Documenting Scribe: Cici Coello Provider For Whom Cherelle is Documenting (Include Credential): Fahad Toney MD Scribe Attestation: Cici Fortune scribed for Fahad Toney MD on 11/10/17 at 0735. Scribe Documentation Reviewed: Yes Provider Attestation: The documentation as recorded by the Cici ogden accurately reflects the service I personally performed and the decisions made by me, Fahad Toney MD
[2017-11-08] MEDS ORDERED: Ciprofloxacin TAB* 500 MG PO ONE (17:36)
--- NOTE | 2017-11-09 08:21 | UC ---
- Progress Note Progress Note: no imaging studies ordered this encounter Discharge - Sign-Out/Discharge Documenting (check all that apply): Post-Discharge Follow Up All imaging exams completed and their final reports reviewed: No Studies - Discharge Plan Condition: Stable Disposition: HOME Prescriptions: Ciprofloxacin TAB* [Cipro 250 MG Tab*] 250 mg PO BID #6 tab Patient Education Materials: Urinary Tract Infection in Women (DC) Referrals: Raza Camacho MD [Primary Care Provider] - 3 Days Additional Instructions: FOLLOW UP WITH YOUR PRIMARY CARE PROVIDER WITHIN ONE WEEK FOR HIGH BLOOD PRESSURE NOTED TODAY. RETURN TO URGENT CARE OR THE EMERGENCY DEPARTMENT FOR ANY WORSENING OR NEW SYMPTOMS. Take medications as instructed and adhere to plan Take Acetaminophen or ibuprofen for pain or fever Increase your fluid intake Return to the or go to the emergency department if symptoms worsen Follow-up with primary care physician in next 2-3 days - Billing Disposition and Condition Condition: STABLE Disposition: Home
--- NOTE | 2017-11-11 12:50 | UC ---
- Progress Note Progress Note: 11/11/2017 Urine culture returned positive for E.Coli. PT Rx Ciprofloxacin PO. Sensitivity results resistant to Ciprofloxacin PO. Please call back Pt and advised to stop ABX and Augmentin PO was sent to pharmacy to take as directed. Thank you Leigh Toribio PA-C Discharge - Sign-Out/Discharge Documenting (check all that apply): Patient Departure - D/c home All imaging exams completed and their final reports reviewed: Yes - Discharge Plan Condition: Stable Disposition: HOME Prescriptions: Amoxicillin/Clavulanate TAB* [Augmentin TAB 875*] 875 mg PO BID #14 tab Patient Education Materials: Urinary Tract Infection in Women (DC) Referrals: Raza Camacho MD [Primary Care Provider] - 3 Days Additional Instructions: FOLLOW UP WITH YOUR PRIMARY CARE PROVIDER WITHIN ONE WEEK FOR HIGH BLOOD PRESSURE NOTED TODAY. RETURN TO URGENT CARE OR THE EMERGENCY DEPARTMENT FOR ANY WORSENING OR NEW SYMPTOMS. Take medications as instructed and adhere to plan Take Acetaminophen or ibuprofen for pain or fever Increase your fluid intake Return to the or go to the emergency department if symptoms worsen Follow-up with primary care physician in next 2-3 days - Billing Disposition and Condition Condition: STABLE Disposition: Home
== END 2017-11-08 17:50 | disposition home or self-care (01) ==
LOC: UCEAST 16:50
DX: N39.0 Urinary tract infection, site not specified (principal); Z87.891 Personal history of nicotine dependence
CPT/HCPCS: 81003; 87077; 87086; 87186; 99212; A9270-GY; G0463

== ENCOUNTER 2019-01-06 10:30 | Emergency (ER) | payer SELFPAY ==
--- OUTSIDE RECORDS SUMMARY | 2019-01-06 10:38 | XMS REPORT | Continuity of Care Document ---
:1955 External Reference #:[id number] Author Name SCARLET Cat (transmitted by agent of provider Alina Frost) Address [address] [place] [address] Care Team Providers Name Role Phone Raza Camacho M.D. - Internal Care Team Information Utilization Management Rn Medicine Problems Active Problems Provider Date Pain in left lower limb Moses Post Onset: 10/04/2017 Localized, primary osteoarthritis Moses Post Onset: 10/04/2017 Varicose veins of lower extremity Moses Post Onset: 10/04/2017 Body mass index 20-24 - normal SCARLET Cat Onset: 06/07/2018 Body mass index 30+ - obesity SCARLET Cat Onset: 07/05/2018 Body mass index 40+ - severely obese SCARLET Cat Onset: 09/27/2018 Social History Type Date Description Comments Sex Unknown Tobacco Use Start: Unknown End: Unknown Patient is a former smoker Smoking Status Reviewed: 06/14/18 Patient is a former smoker Allergies, Adverse Reactions, Alerts Description No Known Drug Allergies Medications Active Medications SIG Qnty Indications Ordering Provider Date Compression Stockings Wear 1pr I83.891 Moses Post 10/04/2017 Daily For 6 Months 20-30MMHG Knee Highs Misc NaproxRamez Baltazar MD 500mg Tablets Alendronate Sodium Clara Preston MD 70mg Tablets Valacyclovir HCL Unknown 500mg Tablets Multivitamin Adult po qd Unknown Tablets Omeprazole Unknown 20mg Capsules DR Lieberman Description No Information Available Vital Signs Date Vital Result Comment 01/03/2019 1:16pm Height 62 inches 5'2" Weight 220.00 lb BP Systolic 123 mmHg BP Diastolic 72 mmHg BMI (Body Mass Index) 40.2 kg/m2 Heart Rate 68 /min Pain Level 9 out of 10 11/29/2018 9:04am Height 62 inches 5'2" Weight 230.00 lb BP Systolic 156 mmHg BP Diastolic 88 mmHg BMI (Body Mass Index) 42.1 kg/m2 Heart Rate 64 /min Respiratory Rate 18 /min Results Description No Information Available Procedures Date Code Description Status 11/29/2018 10414 Injection Sclerosing Solution Multiple Veins Same Leg Completed 10/25/2018 38860 Injection Sclerosing Solution Multiple Veins Same Leg Completed 07/05/2018 31634 Injection Sclerosing Solution Multiple Veins Same Leg Completed Medical Devices Description No Information Available Encounters Type Date Location Provider Dx Diagnosis Office Visit 09/27/2018 [facility], I83.891 Varicose veins of r 9:00a PA low extrem with other complications Z68.41 Body mass index (BMI) 40.0-44.9, adult Assessments Date Code Description Provider 01/03/2019 Z68.41 Body mass index (BMI) 40.0-44.9, adult SCARLET Cat 11/29/2018 I83.891 Varicose veins of right lower extremity with SCARLET Cat other complicat 11/29/2018 Z68.41 Body mass index (BMI) 40.0-44.9, adult SCARLET Cat 10/25/2018 I83.891 Varicose veins of right lower extremity with JORDAN Eckert other complicat 10/25/2018 Z68.41 Body mass index (BMI) 40.0-44.9, adult JORDAN Eckert 09/27/2018 I83.891 Varicose veins of right lower extremity with SCARLET Cat other complicat 09/27/2018 Z68.41 Body mass index (BMI) 40.0-44.9, adult SCARLET Cat 07/05/2018 I83.891 Varicose veins of right lower extremity with SCARLET Cat other complicat 07/05/2018 Z68.38 Body mass index (BMI) 38.0-38.9, adult SCARLET Cat Plan of Treatment Future Appointment(s):02/23/2019 9:00 am - [facility] Functional Status Description No Information Available Mental Status Description No Information Available Referrals Refer to Reason for Referral Status Appt Date Moses Post M.D. RIGHT LEG SCLERO Created [address] [place] [address] [place] [address] [phone]
--- OUTSIDE RECORDS SUMMARY | 2019-01-06 10:38 | XMS REPORT | Continuity of Care Document ---
:1955 External Reference #:[id number] Author Name Kalia Levine JR, DO Address [address], [place] [address] Problems Description No Information Available Social History Type Date Description Comments Sex Unknown Tobacco Use Start: Unknown End: Former Cigarette Smoker Quit about 6 years Unknown ago ETOH Use Denies alcohol use Recreational Drug Use Denies Drug Use Tobacco Use Start: Unknown End: Patient is a former Unknown smoker Smoking Status Reviewed: 12/15/18 Patient is a former smoker Exercise Type/Frequency Exercises regularly Seat Belt/Car Seat Always uses seat belt Allergies, Adverse Reactions, Alerts Description No Known Drug Allergies Medications Active Medications SIG Qnty Indications Ordering Provider Date Oxybutynin Chloride ER 1 by mouth every Unknown day 5mg Tablets ER 24HR Omeprazole 1 by mouth every Unknown 20mg Capsules day DR Naproxen take 1 tablet by Unknown 500mg Tablets mouth two times daily as needed for pain Immunizations Description No Information Available Vital Signs Date Vital Result Comment 12/15/2018 8:57am BP Systolic 142 mmHg BP Diastolic 78 mmHg Height 61.2 inches 5'1.20" Weight 232.00 lb BMI (Body Mass Index) 43.5 kg/m2 Last Menstrual Period 0548539 2 Parity 2 Results Test Date Facility Test Result H/L Range Note Laboratory test 12/15/2018 [facility] Cytology <pending> [place] [address] [phone] Procedures Date Code Description Status 03/22/2017 83737138 Mammogram Completed 03/22/2016 23014546 Colonoscopy Completed Medical Devices Description No Information Available Encounters Type Date Location Provider Dx Diagnosis Office Visit 12/15/2018 [facility] Kalia Levine JR, Z01.419 Encntr for flask pusher exam 9:00a DO (general) (routine) w/o abn findings N95.0 Postmenopausal bleeding Assessments Date Code Description Provider 12/15/2018 Z01.419 Encounter for gynecological examination Kalia Levine JR, DO (general) (routine) without abnormal findings 12/15/2018 N95.0 Postmenopausal bleeding Kalia Levine JR, DO Plan of Treatment Future Appointment(s):12/19/2018 10:15 am - Kalia Levine JR, DO at [id number] - Kalia Levine JR DOZ01.419 Encounter for gynecological examination ( general) (routine) without abnormal findingsComments:Para 2 with complaints of Post menopausal bleedingAppears to have received intermittent and inconsistent prior [facility] had a "tear in her vagina" was given cream. Bleeding has since resolved, she has no bleeding or abnormal discharge on exam today. Attempted to perform EMB secondary to PMB , but cervical OS was found to be closed and stenotic and EMB attempt was aborted. Pt has Hx of cryoablation in the context of abnormal pap smears, ~20 years ago per patient. Pap Smear/HPV collected today. Unclear when last pap smear was performed.Will proceed withGYN TVUSN given stenosis of cervix and unable to obtain Pap smear, if Endometrial lining </= to .4cm, unlikely bleeding is of endometrial origin. Doubt endometrial origin also given cervical stenosis. No gross lesions on cervix, Pap smear collected.Vaginal briceno with mild atrophy, but no evidence of trauma or other site of bleeding.Reviewed importance of healthy diet, active lifestyleAdditional STD screening declined at this timePt agrees to schedule Mammogram, will provide order when scheduledPtreports undergoing Colonoscopy in recent years, but cannot say when exactly, pt encouraged to check with GI doctor to schedule f/u screenig colonoscopy if not up to date.RTO for COMMERCIAL APPRAISER USN winofhQ19.0 Postmenopausal bleedingNew Xrays:Ultrasound,Transvaginal, Ordered: 12/15/18Comments:Unable to obtain EMB today secondary to cervical stenosis.Doubt endometrial origin given stenotic cervix, no bleeding on exam today. If USN exhibits thin endoemtrial stripe, unlikely endoemtrial malignancy.Differential includes Uro origin and Rectal origin.UA negative today, will await return of Ucx as UTI would be consistent with pt's pelvic discomfort as well.If Ucx negative, Pap normal and COMMERCIAL APPRAISER TVUSN is negative, will refer to PCP/GI to workup possible GI etiology of bleeding. Functional Status Description No Information Available Mental Status Description No Information Available Referrals Description No Information Available
--- OUTSIDE RECORDS SUMMARY | 2019-01-06 10:38 | XMS REPORT | Continuity of Care Document ---
:1955 External Reference #:[id number] Author Name SCARLET Cat (transmitted by agent of provider Sabrina Diaz) Address [address] [place] [address] Care Team Providers Name Role Phone Raza Camacho M.D. - Internal Care Team Information Dovetailer Medicine Problems Active Problems Provider Date Pain [...] For 6 Months 20-30MMHG Knee Highs Misc Ramez Nettles MD 500mg Tablets Alendronate Sodium Clara Preston MD 70mg Tablets Valacyclovir HCL Unknown 500mg Tablets Multivitamin Adult po qd Unknown Tablets Omeprazole Unknown 20mg Capsules DR Lieberman Description No Information Available Vital Signs Date Vital Result Comment 11/29/2018 9:04am Height 62 inches 5'2" Weight 230.00 lb BP Systolic 156 mmHg BP Diastolic 88 mmHg BMI (Body Mass Index) 42.1 kg/m2 Heart Rate 64 /min Respiratory Rate 18 /min 10/25/2018 8:41am Height 62 inches 5'2" Weight 230.00 lb BP Systolic 150 mmHg BP Diastolic 84 mmHg BMI (Body Mass Index) 42.1 kg/m2 Heart Rate 73 /min Respiratory Rate 18 /min Results Description No Information Available Procedures Date Code Description Status 10/25/2018 03464 Injection Sclerosing Solution Multiple Veins Same Leg Completed 07/05/2018 17485 Injection Sclerosing Solution Multiple Veins Same Leg Completed 06/07/2018 31159 Injection Sclerosing Solution Multiple Veins Same Leg Completed Medical Devices Description No Information Available Encounters Type Date Location Provider Dx Diagnosis Office Visit 09/27/2018 [facility], I83.891 Varicose veins of r 9:00a PA low extrem with other complications Z68.41 Body mass index (BMI) 40.0-44.9, adult Assessments Date Code Description Provider 11/29/2018 Z68.41 Body mass index (BMI) 40.0-44.9, [...] mass index (BMI) 38.0-38.9, adult SCARLET Cat 06/07/2018 I83.891 Varicose veins of right lower extremity with SCARLET Cat other complicat 06/07/2018 Z68.23 Body mass index (BMI) 23.0-23.9, adult SCARLET Cat Plan of Treatment No Information Available Functional Status Description No Information Available Mental Status Description No Information Available Referrals Refer to Dr Reason for Referral Status Appt Date Moses Post M.D. RIGHT LEG SCLERO Created [address] [place] [address] [phone]
--- OUTSIDE RECORDS SUMMARY | 2019-01-06 10:38 | XMS REPORT | Continuity of Care Document ---
:1955 External Reference #:[id number] Author Name Kalia Levine JR, DO (transmitted by agent of provider Florencio Eaton) Address [address], [place] [address] Problems Description No Information Available Social History Type Date Description Comments Sex Unknown Tobacco Use Start: Unknown End: Former Cigarette Smoker Quit about 6 years Unknown ago Smoking Status Reviewed: 12/15/18 Former Cigarette Smoker Quit about 6 years ago ETOH Use Denies alcohol use Recreational Drug Use Denies Drug Use Exercise Type/Frequency Exercises regularly Seat Belt/Car Seat [...] Mass Index) 43.5 kg/m2 Last Menstrual Period 3569045 2 Parity 2 Results Test Date Facility Test Result H/L Range Note Laboratory test 12/15/2018 Cytology <pending> [place] [address] [phone] Procedures Date Code Description Status 03/22/2017 36333981 Mammogram Completed 03/22/2016 58212554 Colonoscopy Completed Medical Devices Description No Information Available Encounters Description No Information Available Assessments Description No Information Available Plan of Treatment Future Appointment(s):12/19/2018 10:15 am - Kalia Levine JR, DO at [facility] Functional Status Description No Information Available Mental Status Description No Information Available Referrals Description No Information Available
[2019-01-06 10:47] VITALS: BP 130/68
--- NOTE | 2019-01-06 12:23 | UC ---
Lower Extremity/Ankle HPI - HPI Summary HPI Summary: 3 DAYS OF RIGHT LEG PAIN. NO INJURY. HAD VEIN SCLEROTHERAPY OVER A MONTH AGO. WENT TO HER VASCULAR SURGEON'S OFFICE 3 DAYS AGO AND HAD A NEGATIVE ULTRASOUND. CAME HERE DUE TO PERSISTENT SYMPTOMS. NO FEVER, NUMBNESS/TINGLING , SHORTNESS OF BREATH, CHEST PAIN. - History of Current Complaint Chief Complaint: UCLowerExtremity Stated Complaint: R LEG PAIN Time Seen by Provider: 01/06/19 10:53 Hx Obtained From: Patient Onset/Duration: Sudden Onset, Lasting Days, Still Present Severity Initially: Moderate Severity Currently: Moderate Pain Intensity: 8 Pain Scale Used: 0-10 Numeric Aggravating Factor(s): Standing, Ambulation Alleviating Factor(s): Rest Able to Bear Weight: Yes - Allergies/Home Medications Allergies/Adverse Reactions: Allergies Allergy/AdvReac Type Severity Reaction Status Date / Time iohexol [From Omnipaque] Allergy Vomiting Verified 01/06/19 10:47 PMH/Surg Hx/FS Hx/Imm Hx Other Cancer History: UTERINE - Surgical History Surgical History: Yes Surgery Procedure, Year, and Place: brandi en y gastric bypass 20 years ago. APPENDECTOMY. BILATERAL ELBOW REPAIR. RIGHT EYE CATARACT REMOVAL - Family History Known Family History: Positive: Hypertension Negative: Cardiac Disease, Diabetes - Social History Alcohol Use: None Substance Use Type: None Smoking Status (MU): Former Smoker Type: Cigarettes Amount Used/How Often: 1 PPD DECREASED TO 1 CIGARETTE PER DAY X 40 YEARS Have You Smoked in the Last Year: No When Did the Patient Quit Smoking/Using Tobacco: 6 YEARS AGO Review of Systems All Other Systems Reviewed And Are Negative: Yes Constitutional: Positive: Negative Skin: Positive: Negative Respiratory: Positive: Negative Cardiovascular: Positive: Negative Gastrointestinal: Positive: Negative Musculoskeletal: Positive: Calf Tenderness, Myalgia. Negative: Arthralgia Physical Exam Triage Information Reviewed: Yes Appearance: Well-Appearing, No Pain Distress, Well-Nourished Vital Signs: Initial Vital Signs Temp 97.2 F 01/06/19 10:38 Pulse 68 01/06/19 10:38 Resp 16 01/06/19 10:38 BP 130/68 01/06/19 10:38 Pulse Ox 100 01/06/19 10:38 Vital Signs Reviewed: Yes Eyes: Positive: Conjunctiva Clear ENT: Positive: Hearing grossly normal Neck: Positive: Supple Respiratory: Positive: No respiratory distress, No accessory muscle use Cardiovascular: Positive: RRR, Pulses Normal - 2+ DP AND PT PULSES. BRISK CAP REFILL Abdomen Description: Positive: Soft Musculoskeletal: Positive: ROM Intact, No Edema Neurological: Negative: Alert Psychological: Negative: Age Appropriate Behavior Skin: Positive: Other - RIGHT CALF COOL TO TOUCH. NON TENDER. Negative: Rashes Diagnostics - Radiology RLE US Radiology Interpretation Completed By: Radiologist Summary of Radiographic Findings: No evidence for RIGHT lower extremity deep venous thrombosis. Lower Extremity Course/Dx - Course Course Of Treatment: REPEAT ULTRASOUND NEGATIVE FOR DVT. CONSIDER NEUROPATHIC PAIN. TRIAL OF GABAPENTIN 300 MG. ADVISED TO TAKE AT NIGHT BEFORE BED. IF NOT TOO SEDATING AND PATIENT FINDS IT EFFECTIVE OKAY TO TAKE IN THE MORNING WELL. FOLLOW-UP WITH PCP AND DR. FUNK NEXT WEEK. TO THE ER WITHOUT FAIL IF SX WORSEN. - Differential Dx/Diagnosis Provider Diagnosis: Right leg pain Discharge ED - Sign-Out/Discharge Documenting (check all that apply): Patient Departure All imaging exams completed and their final reports reviewed: Yes - Discharge Plan Condition: Stable Disposition: HOME Prescriptions: Gabapentin 300 mg PO BID PRN #60 capsule PRN Reason: Pain - Moderate Patient Education Materials: Leg Pain (ED) Referrals: Moses Funk MD [Medical Doctor] - 1 Week Clara Preston MD [Primary Care Provider] - Additional Instructions: RIGHT LEG ULTRASOUND NEGATIVE FOR CLOT. WILL TRY GABAPENTIN FOR NEUROPATHIC PAIN. TAKE ONCE AT NIGHT BEFORE BED. IF IT DOES NOT MAKE YOU OVERLY SEDATED OKAY TO TAKE IN THE MORNING WELL. FOLLOW-UP WITH YOUR PCP AND DR. MCCANN NEXT WEEK. GO TO THE ER WITHOUT FAIL IF YOUR SYMPTOMS WORSEN. - Billing Disposition and Condition Condition: STABLE Disposition: Home
== END 2019-01-06 12:45 | disposition home or self-care (01) ==
LOC: UCEAST 10:30
DX: M79.604 Pain in right leg (principal); Z88.8 Allergy status to other drugs, medicaments and biological substances; Z85.42 Personal history of malignant neoplasm of other parts of uterus; Z87.891 Personal history of nicotine dependence
CPT/HCPCS: 99212; G0463

== ENCOUNTER 2019-04-13 05:46 | Day surgery (SDC) | payer OTHER ==
[~2019-04-13 05:46] MED LIST: Buffered Lidocaine 1% SYRIN* 1 ML/SYRINGE INTRADERM ONE
[2019-04-13] MEDS ORDERED: Lactated Ringers 1000 ML Bag* 1,000 ML IV SCH (06:00)
[2019-04-13] MEDS ORDERED: Lidocaine 1% w EPI 1:100,000* MDV 20 ML VIAL ONE (06:46)
[2019-04-13 06:57] LABS: Hematocrit 40 % (35-47); Hemoglobin 13.8 g/dL (12.0-16.0); Mean Corpuscular HGB Conc 35 g/dL (31-36); Mean Corpuscular Hemoglobin 30 pg (27-31); Mean Corpuscular Volume 87 fL (80-97); Mean Platelet Volume 8.6 fL (7.4-10.4); Platelet Count 304 10^3/uL (150-450); Red Blood Count 4.56 10^6 /uL (3.70-4.87); Red Cell Distribution Width 14 % (10-15); White Blood Count 6.2 10^3/uL (3.5-10.8)
[2019-04-13] MEDS ORDERED: Dexamethasone IV* 4 MG/ML 1 ML (4 MG) ONE (07:18)
[2019-04-13] MEDS ORDERED: Lidocaine 2% PF * 5 ML VIAL ONE (07:18)
[2019-04-13] MEDS ORDERED: Ondansetron INJ* 2 MG/ML VIAL ONE (07:18)
[2019-04-13] MEDS ORDERED: Ketorolac INJ* 30 MG/ML 1 ML VIAL ONE (07:18)
[2019-04-13] MEDS ORDERED: Propofol* 10 MG/ML 20 ML BTL ONE (07:18)
[2019-04-13] MEDS ORDERED: Succinylcholine* 20 MG/ML 10 ML VIAL ONE (07:18)
[2019-04-13] MEDS ORDERED: fentaNYL* 50 MCG/ML 2 ML VIAL (100 MCG VIAL) ONE (07:18)
[2019-04-13] MEDS ORDERED: DiMENhydriNATE IV* 50 MG/ML VIAL IV PUSH PRN (08:46)
[2019-04-13] MEDS ORDERED: Naloxone* 0.4 MG/ML 1 ML VIAL IV PRN (08:46)
[2019-04-13] MEDS ORDERED: HYDROmorphone INJ1* 1 MG/ML SYRINGE ONE (08:49)
[2019-04-13] MEDS: HYDROmorphone INJ1* 1 MG/ML SYRINGE IV PRN ×3 (08:50→09:30)
[2019-04-13 09:48] VITALS: BP 124/76
--- NOTE | 2019-04-13 16:43 | OP ---
DATE OF OPERATION: 04/13/19 - [facility] DATE OF : 53 SURGEON: Kalia Levine DO. ANESTHESIA: General endotracheal. PRE-OP DIAGNOSIS: Abnormal uterine bleeding, postmenopausal bleeding. POST-OP DIAGNOSIS: Abnormal uterine bleeding, postmenopausal bleeding. IV FLUIDS: 900 mL. URINE OUTPUT: 150 mL. ESTIMATED BLOOD LOSS: 1 mL. SPECIMEN: Endometrial curettings. INDICATIONS: Exam under anesthesia revealed a normal sized anteverted uterus with normal contour, normal bilateral adnexa. Hysteroscopy showed scarred in appearance atrophic endometrial lining consistent with remote prior endometrial ablation without any other defect. [place] were bilaterally visualized. The patient is a 63-year-old with postmenopausal bleeding, scheduled for hysteroscopy and D and C secondary to stenotic cervical os; unable to sample endometrial lining in outpatient setting. Risks, benefits, alternatives of the procedure were discussed with the patient. She understood the risks of the procedure included but are not limited to uterine perforation, fluid overload, rare risk of . She wished to proceed and signed the consent form. DESCRIPTION OF PROCEDURE: The patient was taken to the OR where general anesthesia was administered without difficulty. She was placed in the dorsal lithotomy position with [place] stirrups. Exam under anesthesia revealed a normal anteverted uterus. The patient was then prepped and draped in the normal sterile fashion. A weighted speculum was inserted in the posterior aspect of the vagina. A single-tooth tenaculum was used to grasp the anterior lip of the cervix. The cervical os was sequentially dilated to accommodate the 2.7 mm hysteroscope. Cervical os was appreciated to be stenotic, but slowly, eventually accommodated the size 9 Jack's dilator, eventually up to a total size 19 Hanks dilator. A 2.7 mm 30 degree hysteroscope was introduced under direct visualization. The uterus was distended with normal saline. The uterine lining appeared atrophic with a scarred appearance consistent with past endometrial ablation remotely. There were no other abnormal findings. The hysteroscope was then withdrawn and the uterus was curetted in a clockwise fashion until a gritty feeling was noted in all aspects of the uterus using a small curette. The hysteroscope was then reinserted and there was no evidence of uterine perforation. The hysteroscope was withdrawn. The tenaculum was removed from the cervix and good hemostasis was noted at both puncture sites. The patient tolerated the procedure well. The instruments and sponge counts were correct x2. The patient was awakened from general anesthesia and taken to the recovery room in stable condition. Zurdo Levine DO OBGYN [id number]/[facility] #: [id number] [facility] HOSPITALDenise
== END 2019-04-13 10:21 | disposition home or self-care (01) ==
LOC: OR 05:46
PROVIDERS: ATTEND Obstetrics & Gynecology
DX: N95.0 Postmenopausal bleeding (principal); N88.2 Stricture and stenosis of cervix uteri; R01.1 Cardiac murmur, unspecified; K21.9 Gastro-esophageal reflux disease without esophagitis; Z87.891 Personal history of nicotine dependence; Z98.84 Bariatric surgery status
CPT/HCPCS: 36415; 85027; 86850; 86900; 86901; 88305; J0330; J1100; J1170; J1885; J2405; J2704; J3010